=== PATIENT | male | born 1960 | race Caucasian/White ===

== ENCOUNTER → 2017-11-25 | Outpatient (CLI) | payer MEDICARE ==
[~2017-11-25] MED LIST: HYDR-3237 PO; IBUP-1223 PO; LEVE500T53 PO; OXYC-307 PO
== END | disposition home or self-care (01) ==
LOC: CARD 09:11
PROVIDERS: ATTEND Registered Nurse
DX: R56.9 Unspecified convulsions (principal)
CPT/HCPCS: 95819